=== PATIENT | female | born 1960 | race Caucasian/White ===

== ENCOUNTER 2020-07-31 14:18 | Outpatient (REF) | payer OTHER, SELFPAY ==
[2020-07-31 15:19] LABS: COVID-19 Test Positive (Negative)
== END 2020-07-31 14:19 | disposition home or self-care (01) ==
LOC: HO.EMPCOV 14:18
PROVIDERS: PCP Physician Assistant Medical; Visit Provider Internal Medicine
DX: Z20.828 Contact with and (suspected) exposure to other viral communicable diseases (principal)
CPT/HCPCS: 87635; C9803